=== PATIENT | female | born 1980 | race Caucasian/White ===

== ENCOUNTER 2016-08-26 16:48 | Emergency (ER) | payer OTHER ==
[~2016-08-26] VITALS: Ht 160 cm; Wt 72.7 kg
[2016-08-26 17:00] VITALS: BP 114/70; PULSE 91; RESP 16; O2SAT 98
[2016-08-26 17:37] LABS: BASOPHILS % (AUTO) 0.2 % (0-3); EOSINOPHILS % (AUTO) 0.4 % (0-5); MONOCYTES % (AUTO) 7.7 % (4-12); Mean Corpuscular Hemoglobin 29.2 pg (27.0-35.0); Mean Corpuscular Volume 84.2 fL (81-100); NEUTROPHILS % (AUTO) 73.4 % (40-74); Platelet Count 388 bil/L (150-400)
[2016-08-26] MEDS ORDERED: 0.9% Sodium Chloride 1,000 ML IV ONE (17:43)
[2016-08-26] MEDS ORDERED: Ondansetron 2 mg/mL 2 mL Inj IVPUSH PRN (17:45)
[2016-08-26 17:56] LABS: Magnesium 2.2 mg/dL (1.6-2.6)
--- NOTE | 2016-08-26 18:13 | ED.REPORT ---
HPI-General Illness Date of Service Aug 26, 2016 ED Provider: Krystian Noe MD The patient is a 36 year old female who presents to the emergency department complaining of abdominal pain that began 5 days ago. Since onset she has also experienced chills, diaphoresis, nausea, vomiting, decreased PO intake and diarrhea. She has been evaluated twice since her symptoms began with no significant findings. She denies measured fever, bloody stools or bloody emesis. Nursing Notes Stated Complaint: VOMITING, DIARRHEA, STOMACH PAIN x5 DAYS Chief Complaint: Female Abdominal Pain Nursing Notes Reviewed: Yes Allergies: Coded Allergies: No Known Allergies (Verified Allergy, Unknown, 08/26/16) Scheduled Loperamide (Loperamide) 2 Mg Capsule 2 MG PO Q4H Scheduled PRN Ondansetron (Zofran) 4 Mg Tablet 4 MG PO Q4H PRN PRN For Nausea General Time Seen by MD: 17:43 Chief Complaint Abdominal pain Hx Obtained From: Patient Arrived By: Walk-in Sudden in Onset?: Yes Onset Occurred: 5 days ago Symptom Duration: Since onset Location: : Abdomen Quality: Cramping, Painful, Stabbing Severity: Current: Moderate Severity: Maximum: Severe Recent Healthcare: No recent hospitalization, Recent doctor visit Similar Sx Previous: No Past Medical History Past Medical History Anxiety Past Surgical History Reports: Family History Noncontributory Smoking History Unknown if Ever Smoker Social History Other Social History: Good social support, , Lives with children, Local resident Ambulatory Status Independent Review of Systems Full Review of Systems Constitutional: Reports: Chills, Denies: Fever GI: Reports: Abdominal pain, Anorexia, Diarrhea, Nausea, Vomiting, Denies: Hematemesis, Hematochezia Female: Denies: Dysuria, Hematuria Skin: Reports Diaphoresis Complete sys rev & neg: except as marked. Physical Exam Vital Signs Vital Signs Date Time Temp Pulse Resp B/P Pulse Ox O2 Delivery O2 Flow Rate FiO2 08/26/16 19:16 37.1 82 18 118/78 99 Room Air 08/26/16 17:00 36.8 91 16 114/70 98 Room Air Initial VS: Reviewed Head / Eyes: Atraumatic, Normocephalic, PERRL Neck: Supple, Non-tender, Full range of motion Extremities: Vascular intact, Neuro intact, No swelling, No tenderness Skin: Warm, Dry, No cyanosis Neurologic: Alert, Oriented, Nonfocal Psychiatric: Mood/affect normal, Behavior normal, Normal thought content General/Constitutional: Awake, Alert, No acute distress, Well developed, Well hydrated, Cooperative ENT: Airway patent Mouth: Positive: Mucous membranes dry (slightly) Respiratory / Chest: Atraumatic, Breath sounds NL, Breath sounds = bilat, No respiratory distress, No rales, No rhonchi, No wheezing Cardiovascular: Heart rate NL, Regular rhythm, Heart sounds NL, No murmurs, No rubs, Cap refill not delayed, Peripheral circulation NL Abdomen: Atraumatic, Soft, Non-tender, No guarding, No rebound, BS normoactive , No distention, No hernia, No palpable mass, No pulsatile mass Back: No CVA tenderness Interpretation & Diagnostics Lab Results Interpretation Result Diagram: 08/26/16 1726 08/26/16 1726 Test 08/26/16 17:26 White Blood Count 13.3th/mm3 (3.8-10.1) Red Blood Count 4.87mil/mm3 (3.90-5.20) Hemoglobin 14.2g/dL (12.0-15.6) Hematocrit 41.0% (35.0-46.0) Mean Corpuscular Volume 84.2fL (81-100) Mean Corpuscular Hemoglobin 29.2pg (27.0-35.0) Mean Corpuscular Hemoglobin Concent 34.6% (32.0-37.0) Red Cell Distribution Width 12.7% (12.3-15.4) Platelet Count 388bil/L (150-400) Neutrophils (%) (Auto) 73.4% (40-74) Lymphocytes (%) (Auto) 17.8% (14-46) Monocytes (%) (Auto) 7.7% (4-12) Eosinophils (%) (Auto) 0.4% (0-5) Basophils (%) (Auto) 0.2% (0-3) Sodium Level 140mEq/L (134-144) Potassium Level 3.5mEq/L (3.5-5.2) Chloride Level 103mEq/L (97-108) Carbon Dioxide Level 17mmol/L (18-29) Blood Urea Nitrogen 9mg/dL (6-20) Creatinine 0.57mg/dL (0.57-1.00) Estimat Glomerular Filtration Rate 173mL/min (>59) Glucose Level 90mg/dL (60-99) Calcium Level 9.6mg/dL (8.5-10.1) Magnesium Level 2.2mg/dL (1.6-2.6) Total Bilirubin 0.6mg/dL (0.0-1.2) Aspartate Amino Transf (AST/SGOT) 13U/L (0-50) Alanine Aminotransferase (ALT/SGPT) 14U/L (0-32) Alkaline Phosphatase 80U/L (25-150) Total Protein 7.9g/dL (6.4-8.4) Albumin 4.6g/dL (3.4-5.0) Lipase 13U/L (13-60) Human Chorionic Gonadotropin, Qual Negative (Negative) Hold Hagen Top Tube Received (Received) Re-Eval/Medical Decision Med Decision/Clinical Course The patient is a 36 year old female who presents to the emergency department complaining of abdominal pain that began 5 days ago. Since onset she has also experienced chills, diaphoresis, nausea, vomiting, decreased PO intake and diarrhea. She has been evaluated twice since her symptoms began with no significant findings. She denies measured fever, bloody stools or bloody emesis. Here in the emergency department the patient is afebrile, hemodynamically stable and no apparent distress. Abdominal examination is completely benign without any significant tenderness, guarding, rigidity or rebound. I do not feel that abdominal imaging studies are indicated based upon her presentation at this time. LABS: CBC leuk 13.3, otherwise nl, CMP unremarkable except bicarb of 17, lipase WNL, LFTs WNL, UA not convincing for infection, negative Treated with Zofran and IVF, thereafter, the patient reported significant subjective improvement. She was able to tolerate PO without any ongoing emesis. Serial abdominal examinations remained benign. She has not had any recent travel, she is afebrile, she has not had any bloody diarrhea and therefore I do not feel that antibiotics or stool studies are indicated at this time. She will take loperamide and Zofran for nausea. She has been advised to orally rehydrate. She will follow closely with her primary care physician. Prior to discharge follow-up and return precautions were reviewed in detail with the patient who verbalized understanding and agreement with the plan. The patient was discharged in stable condition. Source of Hx: Old records Time of Eval: 18:55 Re-Evaluation/Progress Note: Discussed plan for discharge after UA results. Counseled Regarding: Diagnosis, Lab results, Need for follow-up, When/why to return to ED Discharge & Departure Primary Impression: Nonspecific abdominal pain Additional Impressions: Vomiting and diarrhea Dehydration Disposition: Home Discharge Condition All VS Reviewed: Yes Condition: Stable Patient Instructions: Acute Abdominal Pain (ED) Additional Instructions: Thank you for seeking care at the emergency room. Our primary goal today in the ED was to evaluate you for any life-threatening conditions. Your evaluation was reassuring. You will be discharged with a prescription for Loperamide and Zofran. Make sure to drink fluids as tolerated. You should follow-up with your primary doctor in the next week if you are not feeling better. You should return to the ED immediately if you develop increased pain, fevers, uncontrollable vomiting, or any other concerning signs or symptoms. Thank you for letting us partake in your care today. Referrals: Karoline Cristina MD (PCP) Scribe Attestation Portions of this note were transcribed by Mary Bojorquez. I, Dr. Noe personally performed the history, physical exam and medical decision-making; I reviewed and confirmed the accuracy of the information in the transcribed note. Signed by: Daksha Cordova, 08/26/2016 at 1915. copies to: Karoline Cristina MD, Beck O MD Aug 26, 2016 18:13 Mary Bojorquez Aug 26, 2016 18:19
[2016-08-26] MEDS ORDERED: LOPE2CAP PO (18:29)
[2016-08-26] MEDS ORDERED: ONDA4TAB6 PO (18:29)
[2016-08-26 19:16] VITALS: BP 118/78; PULSE 82; RESP 18; O2SAT 99
== END 2016-08-26 19:17 | disposition home or self-care (01) ==
LOC: SED 16:48
DX: R10.32 Left lower quadrant pain (principal); R11.2 Nausea with vomiting, unspecified; R19.7 Diarrhea, unspecified; E86.0 Dehydration
CPT/HCPCS: 36415; 80053; 81002; 81025; 83690; 83735; 84703; 85025; 96361; 96374; 99284; J2405; J7030